=== PATIENT | male | born 1980 ===

== ENCOUNTER 2025-01-16 19:19 | Emergency (ER) | payer OTHER, SELFPAY ==
--- NOTE | ~2025-01-16 | XR_ITS ---
CLINICAL HISTORY: lt third finger pain 3 view left hand Comparison: None Findings: Bones intact. No dislocations. No significant loss of joint space or osteophytes. No erosions. No radiopaque foreign body. IMPRESSION: 1. No acute findings This document has been electronically signed by: Homer Daniels MD on 01/16/2025 19:59:01
[2025-01-16 19:32] VITALS: BP 189/106; PULSE 75; RESP 18; TEMP 37; O2SAT 96; BMI 25.0
--- NOTE | 2025-01-16 19:34 | ED.GENADULT ---
HPI - General Adult General Chief complaint: Extremity Problem Stated complaint: left 3rd finger injury Related Data Allergies Allergy/AdvReac Type Severity Reaction Status Date / Time No Known Allergies Allergy Verified 01/16/25 19:34 [facility], [facility] Social History Social History Advance Directives: No Advance Directives Information Provided: No Physical Exam ED Vital Signs: BMI result Body Mass Index 25.0 Course Course Course Narrative: This is an RME done by BO [facility]: Additional HPI, ROS, PE not included below will be deferred to primary provider. 44 year old male presents w/ left third digit pain since monday got finger caught in car belt. Since then throbbing pain, swelling. It was bleeding a few days ago but has stopped Not uptodate on boostrix Discharge Plan Discharge Clinical Impression: Crush injury to finger Patient Disposition: Left W/O Completing Treatment Discharge Date/Time: 01/17/25 00:44
== END 2025-01-17 00:44 | disposition left against medical advice (07) ==
PROVIDERS: Emergency Provider Emergency Medicine
DX: M79.645 Pain in left finger(s) (principal); S67.193A Crushing injury of left middle finger, initial encounter; X58.XXXA Exposure to other specified factors, initial encounter; Y93.9 Activity, unspecified; Y92.9 Unspecified place or not applicable; Y99.9 Unspecified external cause status
CPT/HCPCS: 73130; 99281; 99283

== ENCOUNTER → 2025-01-16 19:34 | Outpatient (BNV) | payer BC, SELFPAY | PROVIDERS: Visit Provider Radiology Diagnostic Radiology | DX: M79.642 Pain in left hand (principal) | CPT/HCPCS: 73130 ==